=== PATIENT | female | born 1965 | race Caucasian/White ===

== ENCOUNTER → 2023-09-11 10:37 | Outpatient (REF) | payer BC, SELFPAY | LOC: WDC 10:37 | PROVIDERS: ATTENDING PHYSICIAN Nurse Practitioner Adult Health | DX: Z12.31 Encounter for screening mammogram for malignant neoplasm of breast (principal) | CPT/HCPCS: 77063; 77067 ==

== ENCOUNTER → 2023-09-24 16:44 | Outpatient (REF) | payer BC, SELFPAY | LOC: HWRAD 16:44 | PROVIDERS: ATTENDING PHYSICIAN Chiropractor; FAMILY PHYSICIAN Nurse Practitioner Adult Health | DX: M54.12 Radiculopathy, cervical region (principal); M99.01 Segmental and somatic dysfunction of cervical region; M62.40 Contracture of muscle, unspecified site; M54.2 Cervicalgia | CPT/HCPCS: 72050 ==

== ENCOUNTER → 2024-08-25 14:25 | Outpatient (REF) | payer BC, SELFPAY | LOC: HWRAD 14:25 | PROVIDERS: ATTENDING PHYSICIAN Nurse Practitioner Adult Health | DX: Z13.820 Encounter for screening for osteoporosis (principal) | CPT/HCPCS: 77080 ==

== ENCOUNTER → 2024-09-16 10:34 | Outpatient (REF) | payer BC, SELFPAY | LOC: WDC 10:34 | PROVIDERS: ATTENDING PHYSICIAN Nurse Practitioner Adult Health | DX: Z12.31 Encounter for screening mammogram for malignant neoplasm of breast (principal) | CPT/HCPCS: 77063; 77067 ==

== ENCOUNTER → 2024-10-13 14:49 | Outpatient (REF) | payer SELFPAY | LOC: HWRAD 14:49 | PROVIDERS: ATTENDING PHYSICIAN Nurse Practitioner Adult Health | DX: E78.00 Pure hypercholesterolemia, unspecified (principal) | CPT/HCPCS: 75571 ==